=== PATIENT | female | born 1955 | race Caucasian/White ===

== ENCOUNTER 2020-10-11 11:40 | Emergency (ER) | payer OTHER ==
[~2020-10-11] VITALS: Ht 175.3 cm; Wt 99.8 kg
--- NOTE | 2020-10-11 12:31 | EKG ---
[place] [address] [facility] [place] [address] ELECTROCARDIOGRAM REPORT Name: MICHAEL MASTERSON Room #: [facility].R.#: [id number] Admission: Attend Phys: Discharge: Date of : 55 Report #: [id number] [facility] ED Test Date: 2020-10-11 Test Time: 12:22:07 Pat Name: MICHAEL MASTERSON Department: Room: Gender: F [employer] Analyst: lola : 1955 Requested By: Elijah Madsen Order Number: [id number] MD: Boby Obrien Measurements Intervals [place] Rate: 82 P: 44 NE: 180 QRS: 23 QRSD: 88 T: 172 QT: 363 QTc: 424 Interpretive Statements Sinus rhythm Nonspecific T abnrm, anterolateral leads Baseline wander in lead(s) III Compared to ECG 09/25/2008 03:00:01 No significant changes found Electronically Signed On 10-11-2020 12:31:27 CDT by Boby Obrien [email or web address] <ELECTRONICALLY SIGNED> By: Boby Obrien MD, [facility] 10/11/20 1231 1222 1222 Boby Obrien MD, FACC /EPI
[2020-10-11 12:39] LABS: ABSOLUTE NEUTROPHILS 4.6 thou/uL (1.4-8.2); BASOPHILS 0.8 % (0.0-2.0); EOSINOPHILS 0.1 % (0.0-3.0); HEMOGLOBIN 14.9 gm/dL (12.0-15.0); MCH 30.8 pg (26.0-34.0); MCHC 34.5 g/dL (28.0-37.0); MCV 89.3 fL (80.0-100.0); MONOCYTES 11.7 % (1.0-8.0); PLATELET COUNT 198 thou/uL (150-400); POLYS 72.4 % (36.0-66.0); RBC 4.82 mil/uL (4.20-5.00); RDW 13.3 % (10.5-14.5); WBC 6.3 thou/uL (4.0-11.0)
[2020-10-11 12:53] LABS: ANION GAP 12 mmol/L (7-16); BUN 21 mg/dL (7-18); CALCIUM 8.4 mg/dL (8.5-10.1); CHLORIDE 101 mmol/L (98-107); CO2 27 mmol/L (21-32); CREATININE 1.5 mg/dL (0.6-1.0); GLUCOSE 128 mg/dL (74-106); POTASSIUM 3.3 mmol/L (3.5-5.1); SODIUM 140 mmol/L (136-145)
[2020-10-11] MEDS ORDERED: HYDROCHLOROTHIA25 M1 PO (12:55)
[2020-10-11 13:02] LABS: TROPONIN-I <0.06 ng/mL (<0.06)
[2020-10-11] MEDS ORDERED: TESSALON PERLE100 MG PO (14:15)
[2020-10-11] MEDS ORDERED: VENTOLIN HFA INH8 GM INH (14:15)
[2020-10-11] MEDS ORDERED: PREDNISONE 20 M20 MG PO (14:15)
[2020-10-11 15:51] VITALS: BP 148/90
== END 2020-10-11 15:47 | disposition home or self-care (01) ==
LOC: ER 11:40
PROVIDERS: Nurse Practitioner
DX: U07.1 COVID-19 (principal); R53.1 Weakness; E66.9 Obesity, unspecified; I10 Essential (primary) hypertension; Z98.51 Tubal ligation status; Z88.8 Allergy status to other drugs, medicaments and biological substances; Z79.899 Other long term (current) drug therapy